=== PATIENT | female | born 1985 | race Caucasian/White ===

== ENCOUNTER 2020-11-09 06:34 | Emergency (ER) | payer OTHER ==
[~2020-11-09] VITALS: Ht 157.5 cm; Wt 49.4 kg
[2020-11-09] MEDS ORDERED: PENICILLIN V P500 MG PO (06:53)
[2020-11-09] MEDS ORDERED: ACETAMINOPHEN-1 EAC2 PO (06:53)
[2020-11-09 07:24] VITALS: BP 120/80
== END 2020-11-09 07:26 | disposition home or self-care (01) ==
LOC: M.ERS 06:34
DX: K04.7 Periapical abscess without sinus (principal); Z88.5 Allergy status to narcotic agent

== ENCOUNTER 2021-01-15 14:55 | Emergency (ER) | payer OTHER ==
[~2021-01-15] VITALS: Ht 157.5 cm; Wt 49.9 kg
[~2021-01-15 14:55] MED LIST: ACETAMINOPHEN-1 EAC2 PO; PENICILLIN V P500 MG PO
[2021-01-15 15:15] LABS: URINE BILIRUBIN NEGATIVE (Negative); URINE BLOOD 3+ (Negative); URINE CLARITY SL CLOUDY; URINE COLOR YELLOW; URINE GLUCOSE-RANDOM NEGATIVE (Negative); URINE KETONES TRACE (Negative); URINE LEUKOCYTES-REFLEX 2+ (Negative); URINE NITRITE-REFLEX NEGATIVE (Negative); URINE PROTEIN 2+ (Negative); URINE SPECIFIC GRAVITY >= 1.030 (1.005-1.030); URINE UROBILINOGEN 0.2 E.U./dl (0.2-1.0)
[2021-01-15 15:21] LABS: SQUAMOUS 4-10 Moderate /LPF (0-3); URINE RBC >20 Many /HPF (0-2); URINE WBC-REFLEX >25 Many /HPF (0-5)
[2021-01-15 15:22] LABS: CASTS None Seen /LPF (None Seen); CRYSTALS None Seen /LPF (None Seen); MUCUS 0-3 Light strn/LPF (None Seen)
[2021-01-15 15:58] LABS: ABSOLUTE EOSINOPHILS 0.1 thou/uL (0.0-0.7); ABSOLUTE LYMPHOCYTES 1.5 thou/uL (0.8-5.3); ABSOLUTE MONOCYTES 1.3 thou/uL (0.0-1.2); ABSOLUTE NEUTROPHILS 7.7 thou/uL (1.6-8.1); BASOPHILS 0.4 %; EOSINOPHILS 1.1 %; HEMATOCRIT 42.6 % (37.0-47.0); HEMOGLOBIN 14.5 gm/dL (12.0-15.0); LYMPHOCYTES 14.4 %; MCH 29.6 pg (26.0-34.0); MCV 86.8 fL (80.0-100.0); MONOCYTES 12.4 %; MPV 8.2 fl. (7.2-11.1); NUCLEATED RBCS 0 /100WBC; PLATELET COUNT* 170 thou/uL (150-400); POLYS 71.7 %; RBC 4.91 mil/uL (4.20-5.00); RDW-CV 14.4 % (10.5-14.5); WBC 10.8 thou/uL (4.0-11.0)
[2021-01-15 16:07] LABS: CALCIUM 8.9 mg/dL (8.5-10.1); CREATININE 0.8 mg/dL (0.6-1.3); POTASSIUM 3.8 mmol/L (3.5-5.1)
[2021-01-15 16:11] LABS: ALBUMIN 3.6 g/dL (3.4-5.0); TOTAL BILIRUBIN 0.2 mg/dL (<0.1-1.0); TOTAL PROTEIN 8.1 g/dL (6.4-8.2)
[2021-01-15] MEDS ORDERED: CEFDINIR300 MG PO (16:25)
[2021-01-15] MEDS ORDERED: ZOFRAN ODT4 MG PO (16:25)
[2021-01-15] MEDS ORDERED: PYRIDIUM100 M1 PO (16:25)
[2021-01-15] MEDS ORDERED: BENTYL 10 MG CA10 M1 PO (16:25)
[2021-01-15 16:43] VITALS: BP 108/63
== END 2021-01-15 16:41 | disposition home or self-care (01) ==
LOC: M.ERS 14:55
PROVIDERS: Nurse Practitioner Family
DX: N39.0 Urinary tract infection, site not specified (principal); K59.00 Constipation, unspecified; Z88.5 Allergy status to narcotic agent; Z98.51 Tubal ligation status